=== PATIENT | male | born 1970 | race Hispanic/Latino ===

== ENCOUNTER 2024-07-26 09:27 | Emergency (ER) | payer OTHER, SELFPAY ==
[2024-07-26 09:33] VITALS: BP 176/110
--- NOTE | 2024-07-26 09:56 | ED.GENMED ---
History of Present Illness
General
Chief Complaint: Skin Surface Trauma
Source: patient
Exam Limitations: none
Time Seen by Provider: 07/26/24 09:42
Nursing documentation reviewed up to this point in time: agreed with
History of Present Illness
History of Present Illness:
Patient is a 53 year old male who denies significant past medical history who presents to the emergency department accompanied by a friend for evaluation of an injury to the right ring finger sustained approximately 2 hours ago. Patient reports
that he was working to help clear the snow when the snowblower stopped. Patient report that he put his hand in the snowblower and sustained a laceration to the finger. Patient reports he currently has pain which he rates a 6 out of 10. Patient
denies any numbness or tingling to the digit. Patient reports that his tetanus is up-to-date. Patient denies taking any medication for pain prior to arrival. Patient notes that he is right-hand dominant.
Past History
Past History
ED Past Medical History: None
ED Past Surgical History: None
Social History
Tobacco: Non-smoker
Alcohol: None
Drug: None
Review of Systems
Review of Systems
Allergies reviewed?: Yes
All Other Systems: ROS reviewed and negative except as documented in HPI and ROS
Constitutional: Reports no symptoms
EENT: Reports no symptoms
Respiratory: Reports no symptoms
Cardiac: Reports no symptoms
ABD/GI: Reports no symptoms
Musculoskeletal: Reports other (right fourth finger pain)
Skin: Reports other (laceration of the right fourth digit)
Neurological: Reports no symptoms; Denies numbness
Phy Exam
General Physical Exam
General Presentation: well appearing and no apparent distress
General age: appears stated age
General Skin: warm and dry
General Habitus: normal
General Mental: alert
General Hydration: appears well hydrated
ENT Exam
ENT Exam: EOMI
Pulmonary Exam
Pulmonary Exam: no respiratory distress
Musculoskeletal Exam
Musculoskeletal Exam: other (laceration to the base of the nailbed of the right fourth digit with maceration of the nail/nail bed, distal aspect of the finger is warm and well-perfused, sensation is intact to light touch distally)
Psychiatric Exam
Psychiatric Exam: normal mood/affect
Course
Orders/Labs/Results
Orders:
Orders
07/26/24 09:54
Ibuprofen [Motrin] 600 mg PO NOW STA
CR Finger(s)/thumb Min 2 Vw Rt Urgent
Comment:
Reason For Exam: right ring finger snowblower injury
07/26/24 10:02
Ibuprofen [Motrin] 600 mg .ROUTE .STK-MED ONE
Vital Signs
Initial and Last Documented VS:
Initial Vital Signs
Temp Pulse Resp BP Pulse Ox
97.6 F 53 16 176/110 99
07/26/24 09:33 07/26/24 09:33 07/26/24 09:33 07/26/24 09:33 07/26/24 09:33
Last Documented Vital Signs
Temp Pulse Resp BP Pulse Ox
97.6 F 53 16 176/110 99
07/26/24 09:33 07/26/24 09:33 07/26/24 09:33 07/26/24 09:33 07/26/24 09:33
Procedures
Laceration Closure
Right Distal Fourth Finger:
Status of Wound: clean
Description of Wound Edges: macerated
Preparation: cleaned with saline
Anesthesia: 1% Lidocaine and Digital-Regional
Revision/Debridement: debrided and other (nail removed in the usual fashion)
Skin Closure Material: 4-0 nylon
Number of sutures: 3
Additional information:
Dressed with non-adherent gauze, regular gauze, Kerlix, tape
MDM/Problems Addressed
Differential Diagnosis Includes:
Nailbed injury, finger laceration, finger fracture
*Critical Care Note
Total Time (30-74mins, 75-104mins- exclusive of procedures): Not Applicable
Update Note
Update Note:
Otherwise healthy 53-year-old male presents to the emergency department accompanied by a friend for evaluation of an injury to his right fourth digit after he placed his hand in a snowblower. Patient reports that his tetanus is up-to-date. On
arrival, patient is hypertensive but in pain, afebrile. On exam, patient is well-appearing, he is in no acute distress, he has an injury to the distal aspect of the right ring finger but is neurovascularly intact. Will obtain radiographs, provide
ibuprofen for pain. Will likely discuss with orthopedics.
Radiographs as interpreted myself demonstrate comminuted tuft fracture. Case discussed with Dr. Covarrubias of Orthopedics who reviewed images of the wound and images of the radiographs. He he feels that the patient will likely need a partial
amputation. He recommends removing the nail, irrigating such debriding the wound thoroughly, closing the skin, dressing the wound and placing a splint. He recommends the patient follow-up with hand surgery within 1 week to discuss options.
These recommendations were shared with the patient and his friend. Digital block was performed and the nail was successfully removed. The laceration was approximated and the wound was dressed and splinted. Patient will be started on a course of
empiric antibiotics for an open fracture. Patient is safe for discharge to home with wound care directions and close outpatient hand surgery follow-up. Patient and his friend were also educated on return precautions, they expressed understanding
of the plan and agreed.
ED Attending Note
-
Portions of this chart may have been created with voice recognition software.� Occasional wrong word or��sound alike� substitutions may have occurred due to the inherent limitations of voice recognition software.
Discharge Plan
Departure
Patient Disposition: Home (Routine Discharge)
Date of Disposition: 07/26/24
Time of Disposition: 12:32
Patient with high blood pressure during this ER visit?: Yes
Condition: Good
Covid-19: Not Applicable
Discharge Problem:
Open tuft fracture of right finger
Instructions: Finger Fracture ED
Prescriptions:
New
cephalexin 500 mg capsule
500 mg PO QID 7 Days Qty: 28 0RF
Referrals:
Collin Hassan MD [Active] - Follow up in 2-3 days (Call for appointment please)
UNKNOWN - PT DOES,NOT KNOW [Family Provider] -
Activity Restrictions/Additional Instructions:
You were seen in the emergency department for evaluation of an injury to your right ring finger. While you were in the emergency department you had x-rays which show that you have a complicated fracture or broken bone of your finger. We discussed
your case with our hand surgeon and repaired your wound with 3 sutures. Please continue to keep the area clean by washing gentle soap and water, pat dry, and keep covered. Please take all the antibiotic prescribed to exactly as directed, even if
you start to feel better. It is extremely important to follow-up as soon as possible with a hand surgeon for further evaluation and treatment. Please return to the emergency department for severe pain, swelling, color change of the finger, or for
any other worsening or concerning symptoms.
Interventions
Interventions:
*Risk Screen - Suicide Last Done: 07/26/24 09:33
*General Assessment Last Done: 07/26/24 12:44
*Neglect/Abuse Screening Last Done: 07/26/24 12:43
ED- Fall Risk Assessment Last Done: 07/26/24 12:44
*ED COVID-19 Vaccine History Last Done: 07/26/24 09:33
*Nursing Disposition Last Done: 07/26/24 12:44
ED-Skin Assessment Last Done: 07/26/24 12:43
Discharge Date and Time
Discharge Date/Time: 07/26/24 12:45
Print Language: ICELANDIC
[2024-07-26] MEDS: MOTRIN 600 MG PO (10:03)
== END 2024-07-26 12:45 | disposition home or self-care (01) ==
LOC: EMR 09:27
PROVIDERS: EMERGENCY PHYSICIAN Emergency Medicine
DX: S62.634B Displaced fracture of distal phalanx of right ring finger, initial encounter for open fracture (principal); W29.8XXA Contact with other powered hand tools and household machinery, initial encounter; Y93.H1 Activity, digging, shoveling and raking
CPT/HCPCS: 11730; 29130; 99283; 73140

== ENCOUNTER → 2024-09-11 08:08 | Outpatient (REF) | payer OTHER, SELFPAY ==
[2024-09-11 09:34] LABS: Hematocrit 42.7 % (39.0-52.0); Hemoglobin 14.3 g/dL (13.0-18.0); Mean Corp Hgb Conc. 33.5 g/dL (33.0-37.0); Mean Corpuscular Volume 83.7 fL (80.0-94.0); Mean Platelet Volume 10.3 fL (7.4-10.4); Platelet Count 210 10^3/uL (130-400); Red Cell Dist. Width 13.6 % (11.5-14.5); White Blood Cell Count 6.2 10^3/uL (4.8-10.8)
[2024-09-11 10:20] LABS: ALT (SGPT) 144 U/L (0-50); AST (SGOT) 81 U/L (17-59); Albumin 4.8 g/dl (3.5-5.0); Alkaline Phosphatase 119 U/L (38-126); Blood Urea Nitrogen 16 mg/dl (9-20); Calcium 9.3 mg/dl (8.4-10.2); Carbon Dioxide 27 mmol/L (22-30); Chloride 103 mmol/L (98-107); Glucose 97 mg/dl (70-99); HDL Cholesterol 44 mg/dl; LDL Cholesterol, Calculated 111 mg/dl; Potassium 4.1 mmol/L (3.5-5.1); Sodium 141 mmol/L (135-145); Total Bilirubin 0.7 mg/dl (0.2-1.3); Total Cholesterol 187 mg/dl (50-199); Total Protein 7.8 g/dl (6.3-8.2); Triglyceride 160 mg/dl (10-149); Very Low Density Lipoprotein 32 mg/dl (0-30); eGFR > 60.00
[2024-09-11 10:57] LABS: TSH Reflex To Free T4 7.24 uIU/ml (0.47-4.68)
[2024-09-11 11:27] LABS: Free T4 1.01 ng/dl (0.78-2.19)
== END ==
LOC: REG 08:08
PROVIDERS: ATTENDING PHYSICIAN Nurse Practitioner Adult Health
DX: E03.9 Hypothyroidism, unspecified (principal); I10 Essential (primary) hypertension
CPT/HCPCS: 36415; 80053; 80061; 84439; 84443; 85027

== ENCOUNTER → 2024-12-06 07:22 | Outpatient (REF) | payer OTHER, SELFPAY ==
[2024-12-06 09:08] LABS: Albumin 4.1 g/dl (3.5-5.0); Carbon Dioxide 26 mmol/L (22-30)
[2024-12-06 09:16] LABS: Free T4 1.45 ng/dl (0.78-2.19)
[2024-12-06 09:21] LABS: ALT (SGPT) 90 U/L (0-50); AST (SGOT) 52 U/L (17-59); Alkaline Phosphatase 127 U/L (38-126); Blood Urea Nitrogen 18 mg/dl (9-20); Calcium 9.1 mg/dl (8.4-10.2); Chloride 106 mmol/L (98-107); Glucose 106 mg/dl (70-99); Potassium 3.9 mmol/L (3.5-5.1); Sodium 143 mmol/L (135-145); Total Bilirubin 0.7 mg/dl (0.2-1.3); Total Protein 7.7 g/dl (6.3-8.2); eGFR > 60.00
== END ==
LOC: REG 07:22
PROVIDERS: ATTENDING PHYSICIAN Nurse Practitioner Adult Health
DX: E03.9 Hypothyroidism, unspecified (principal); R74.8 Abnormal levels of other serum enzymes
CPT/HCPCS: 36415; 80053; 84439; 84443

== ENCOUNTER → 2025-03-21 07:34 | Outpatient (REF) | payer OTHER, SELFPAY ==
[2025-03-21 09:11] LABS: ALT (SGPT) 98 U/L (0-50); AST (SGOT) 63 U/L (17-59); Albumin 4.7 g/dl (3.5-5.0); Alkaline Phosphatase 109 U/L (38-126); Blood Urea Nitrogen 29 mg/dl (9-20); Calcium 9.4 mg/dl (8.4-10.2); Carbon Dioxide 26 mmol/L (22-30); Chloride 106 mmol/L (98-107); Glucose 110 mg/dl (70-99); Potassium 3.7 mmol/L (3.5-5.1); Sodium 140 mmol/L (135-145); Total Protein 8.1 g/dl (6.3-8.2); eGFR > 60.00
== END ==
LOC: CLINIC 07:34
PROVIDERS: ATTENDING PHYSICIAN Nurse Practitioner Adult Health
DX: R74.8 Abnormal levels of other serum enzymes (principal)
CPT/HCPCS: 36415; 80053

== ENCOUNTER → 2025-06-13 08:12 | Outpatient (REF) | payer OTHER, SELFPAY ==
[2025-06-13 09:34] LABS: ALT (SGPT) 60 U/L (0-50); AST (SGOT) 42 U/L (17-59); Albumin 4.4 g/dl (3.5-5.0); Alkaline Phosphatase 112 U/L (38-126); Blood Urea Nitrogen 15 mg/dl (9-20); Calcium 8.9 mg/dl (8.4-10.2); Carbon Dioxide 28 mmol/L (22-30); Chloride 103 mmol/L (98-107); Glucose 105 mg/dl (70-99); Potassium 3.8 mmol/L (3.5-5.1); Sodium 136 mmol/L (135-145); Total Protein 8.3 g/dl (6.3-8.2); eGFR > 60.00
[2025-06-13 18:50] LABS: Hepatitis B Surface Antigen Negative (Negative)
[2025-06-13 19:09] LABS: Hepatitis C Antibody Negative (Negative)
== END ==
LOC: REG 08:12
PROVIDERS: ATTENDING PHYSICIAN Nurse Practitioner Adult Health
DX: R74.8 Abnormal levels of other serum enzymes (principal); E03.9 Hypothyroidism, unspecified
CPT/HCPCS: 36415; 80053; 84443; 86704; 86706; 86803; 87340